=== PATIENT | female | born 1945 | race Caucasian/White ===

== ENCOUNTER → 2020-05-19 09:59 | Outpatient (CLI) | payer MEDICARE, SELFPAY ==
--- NOTE | 2020-05-19 10:04 | DI.RAD.S_ITS ---
PROCEDURE: XR KUB INDICATIONS: kidney stones TECHNIQUE: One view of the abdomen acquired. COMPARISON: None. FINDINGS: Surgical changes and devices: None. Bowel: Bowel gas pattern is normal. Soft tissues: No suspicious abdominal calcifications on the left but on the right there is a 8 x 9 mm calcification overlying the expected position of the upper 3rd collecting system of the right kidney.. Visualized solid organ contours appear normal in size. Bones: No suspicious bony lesions. IMPRESSION: 8 x 9 mm apparent calcification over the upper 3rd of the right kidney area. No CT KUB is available for review. Dictated by: Jorje Azar M.D. on 05/19/2020 at 10:40 Approved by: Jorje Azar M.D. on 05/19/2020 at 10:43
== END ==
PROVIDERS: Referring Provider Specialist; Visit Provider Specialist
DX: N20.0 Calculus of kidney (principal); N20.1 Calculus of ureter; R39.9 Unspecified symptoms and signs involving the genitourinary system
CPT/HCPCS: 74018; 99214

== ENCOUNTER 2020-06-06 06:12 | Day surgery (SDC) | payer MEDICARE, SELFPAY ==
[2020-06-06] VITALS (8 sets, daily range): BP systolic 112–141; BP diastolic 44–73; PULSE 64–93; RESP 12–18; TEMP 36.4–36.8; O2SAT 93–100; BMI 37.0
--- NOTE | 2020-06-06 | DI.RAD.S_ITS ---
PROCEDURE: XR KUB INDICATIONS: Ureteral calculus TECHNIQUE: One view of the abdomen acquired. COMPARISON: [facility], CR, XR KUB, 05/19/2020, 10:13. FINDINGS: Surgical changes and devices: Partially visualized pacer. Bowel: Bowel gas pattern is normal. Mild stool Soft tissues: No suspicious abdominal calcifications. Visualized solid organ contours appear normal in size. Bones: No suspicious bony lesions. Spondylosis and bilateral hip joint degeneration. IMPRESSION: Mild stool. No specific evidence of bowel obstruction seen at this time although if the patient's symptoms do not improve, continued surveillance with abdominal series radiographs could be performed. Dictated by: Wai Madison M.D. on 06/06/2020 at 9:33 Approved by: Wai Madison M.D. on 06/06/2020 at 9:34
--- NOTE | 2020-06-06 07:27 | PM.PREOP ---
Pre-operative Note Interval Note History & Physical reviewed/Exam performed by Physician: Yes Changes to H&P: No
[2020-06-06] MEDS: LACTATED RINGERS 1,000 ML 42 ML IV (07:41)
[2020-06-06] MEDS: CEFAZOLIN 2 GM/100 ML FROZ.PIGGY IV (07:46)
--- NOTE | 2020-06-06 08:30 | SUR.OPER ---
Lithotomy on padded OR bed, head on pillow, arms secured on padded arm boards at <90 degrees abduction. Legs secured in padded yellow fins stirrups.
[2020-06-06] MEDS: BELLADONNA/OPIUM SUPPOSITORIES 1 EACH PR (09:00)
--- NOTE | 2020-06-06 09:13 | SUR.OPER ---
LASER SETTINGS: 0.3 J, 40HZ, 4.54 KJ, 6:58
--- NOTE | 2020-06-06 09:19 | P.OP_ITS ---
Operative Date/Time/Diagnoses Date of procedure: 06/06/20 Time of procedure: 09:19 Pre-op diagnosis: 1. 10 x 7 mm right distal ureteral calculus 2. Multiple right nephrolithiasis Post-op diagnosis: other (Right ureterocele) Procedure & Clinicians Procedure: 1. Right ureteroscopic laser lithotripsy Same procedure as scheduled: No (Stent not placed.) Indications: 1. 10 x 7 mm right distal ureteral calculus. 2. Multiple right renal calculi. 3. History of right renal colic. Surgeon: Ashwini Carpio Click Yes if Unassisted: Yes Anesthesia Type: General Operative Notes Findings: Urethra normal Bladder with normal urothelium throughout with exception of region surrounding the right ureteral orifice and distal intramural ureter. (preop early patient reported she passed a tiny irregular stone in the interval since last seen). A right ureterocele was identified with a stenotic os Right ureter demonstrated presence of 2 calculi adjacent to 1 another. The more proximal ureter was without abnormality. Closure Type: not applicable Specimen(s): none sent Estimated Blood Loss (mL): 0 Blood products transfused: none Tourniquet time (min): 0 Procedure in detail: Patient was positioned supine and was administered general anesthesia. She was then repositioned in the semi lithotomy and the lower abdomen, genitalia, and groin were then prepped and draped in sterile fashion. The 22 Mexican panendoscope was then passed lower urinary tract with the findings as described above. A hybrid 0.35 ureteral guidewire was then advanced through a 5 Mexican pollock catheter to optimize control of the floppy tip of the Glidewire. The os was not immediately apparent. With gentle and careful probing the os was identified and the wire was then advanced proximally under direct and fluoroscopic guidance successfully. The Sultan catheter was then backloaded off the wire. A 15 Mexican balloon dilating catheter was then advanced over the guidewire and positioned across the right ureterovesical junction. The balloon was then inflated to 18 atmospheres and held for 5 minutes. The balloon was then deflated and the balloon dilating catheter was backloaded off the wire. The semi rigid ureteral scope was then advanced in lower urinary tract and then into the distal right ureter with the findings as described above. A 365 micron laser fiber was selected and all operating room personnel and patient were fitted with laser safety eyewear. Laser lithotripsy was then commenced and continued until both stones were fragmented down to diameter about half of that of the 365 micron laser fiber. Some of the fragments were irriga katie agitated from the distal ureter. The ureteral scope was then removed and the panendoscope was placed back in the bladder and the bladder contents drained a final time. The patient was then repositioned supine, was awakened, and transferred to a reau claire for transport to PACU. Complications: none Post-operative Condition: stable Disposition: PACU Plan for aftercare: Discharge home
[2020-06-06] MEDS: FUROSEMIDE 20 MG/2 ML VIAL IV (09:23)
--- NOTE | 2020-06-06 09:58 | SUR.PHASEII ---
Report given to Germaine WEINSTEIN. Pt states pain is a 2-3 and is tolerating it and does not want pain medication. Pt is up and going to the bathroom. pt voided once and RN strained urine and nothing came out. Will strain urine when pt goes again. No complaints pt tolerated fluids well.
[2020-06-19 10:07] LABS: Size To small to measure.
== END 2020-06-06 11:10 | disposition home or self-care (01) ==
PROVIDERS: PCP Family Medicine; Referring Provider Specialist; Visit Provider Specialist
PROC: (CPT 52353; principal; 2020-06-06 07:45)
DX: N20.1 Calculus of ureter (principal); N28.89 Other specified disorders of kidney and ureter; N20.0 Calculus of kidney; I10 Essential (primary) hypertension; Z95.0 Presence of cardiac pacemaker; Z79.01 Long term (current) use of anticoagulants
CPT/HCPCS: 52353; 74018; 76000; 82365; 85610; J0690; J1100; J1940; J2405; J2704; J3010

== ENCOUNTER → 2022-12-27 09:55 | Outpatient (CLI) | payer MEDICARE, SELFPAY ==
--- NOTE | 2022-12-27 | DI.US.S_ITS ---
ULTRASOUND GUIDED BIOPSY LEFT BREAST USING VACUUM DEVICE WITH MARKING DEVICE INSERTED: 12/27/2022 CLINICAL: Left breast mass. PATIENT CONSENT: Risks (minor bleeding, infection, vasovagal reaction and repeat procedure), benefits and alternatives were explained to the patient and written informed consent was obtained. Correlation is made to exams dated: 12/08/2022 ultrasound, 11/30/2022 mammogram, 11/02/2022 mammogram - out side, 02/13/2013 mammogram, and 01/19/2012 mammogram - [facility]. An ultrasound guided biopsy using real-time ultrasound was performed for the circumscribed irregular shaped cystic mass located in the left breast at 9 o'clock posterior depth. This was described on the previous mammography and ultrasound reports. The skin was prepped in the usual manner. The abnormality was approached from the lateral aspect. A 13 gauge biopsy needle was placed adjacent to the abnormality under ultrasound guidance. Once the needle was documented to be in the correct location, four specimens were obtained using the Mammotome biopsy system. A clip was inserted into the biopsy cavity. Post procedure imaging demonstrates the location device at the targeted area. The specimens were sent to the laboratory for pathological analysis. IMPRESSION: ULTRASOUND GUIDED BIOPSY BENIGN Ultrasound guided biopsy of the cystic mass in the left breast at 9 o'clock posterior depth was successful. Pathology indicates benign apocrine metaplasia (AM), ductal ectasia (DE), and periductal fibrosis. Pathology results are concordant with imaging findings. Return to annual mammogram screening schedule is recommended. This exam was interpreted at Station ID: [id number]. Fabian Thayer M.D. acr/:01/02/2023 18:32:54
--- NOTE | 2022-12-27 | DI.MG.S_ITS ---
UNILATERAL LEFT DIGITAL DIAGNOSTIC MAMMOGRAM 3D/2D POST-EXCISIONAL BIOPSY: 12/27/2022 CLINICAL: Post clip. Comparison is made to exams dated: 11/30/2022 mammogram, 11/02/2022 mammogram - out side, and 02/13/2013 mammogram - [facility]. There are scattered areas of fibroglandular density in the left breast (category b / 25%-50% glandular tissue). There is a mass in the left breast seen on the craniocaudal view only. There also is a marker clip in the appropriate position in the left breast at 9 o'clock posterior depth. This marker clip placement is at the biopsy site. IMPRESSION: POST PROCEDURE MAMMOGRAM FOR MARKER PLACEMENT The mass in the left breast seen on the craniocaudal view only needs additional evaluation. There was a successful marker clip placement in the left breast at 9 o'clock posterior depth. Based on the Tyrer Cuzick model (a risk assessment model) the patient's lifetime risk is 1.9% and her 10 year risk is 0.0%. According to the ACR, ACS, and NCCN guidelines, an annual breast MRI exam along with mammogram is recommended if the patient's lifetime risk is 20% or greater. This exam was interpreted at Station ID: [id number]. NOTE: For mammograms, a report in lay terms will be sent to the patient. Approximately 15% of breast malignancies will not be visualized mammographically. In the management of a palpable breast mass, a negative mammogram must not discourage biopsy of a clinically suspicious lesion. Electronically Signed By: Fabian Thayer M.D. acr/:12/27/2022 11:35:45 ACR BI-RADS Category Post-procedure mammogram for marker placement
--- NOTE | 2022-12-27 | PATH_ITS ---
[facility] Accession Number: [id number] No. of containers..01 Tissue . 01 Material submitted: . breast - LEFT BREAST 9:00 4CMDN MASS . 01 Diagnosis: Left Breast 9 o'clock, 4 cm DN Mass, Biopsies: Benign breast parenchyma with cystic apocrine metaplasia, duct ectasia, and periductal fibrosis. Rare calcifications associated with benign ducts also present. Negative for in situ and invasive malignancy. . . CAMERON 12/30/2022 1617 Local . 01 Comment: Multiple deeper levels have been examined without evidence of an in situ or invasive carcinoma. . As part of ongoing microbiology quality control technician, this case is also reviewed by Dr. Maria Eugenia Russell who agrees with the interpretation. . 01 Electronically signed: . Kim Valladares MD, Pathologist NPI- [id number] . 01 Gross description: . The specimen is received in formalin labeled with the patient's name, , and BX breast, consists of multiple yellow-stanton soft tissue fragments aggregating to 1.4 x 0.7 x 0.2 cm. The specimen is inked orange, filtered, and submitted entirely in cassette A1. . The specimen was removed on 12/27/2022 at 1059. Time in formalin not provided. Cold ischemic time cannot be calculated. Total fixation time is approximately 31.5 hours. ([id number]) /MRV 12/28/2022 1313 Local . 01 Pathologist provided ICD-10: R92.8, N63.0 . 01 CPT . 771429 Performed at: 01 [facility] [address] [place] [address] [address], [place], [place] [id number] MD Cole Puri MD Phone: [phone]
== END ==
PROVIDERS: PCP Family Medicine; Referring Provider Family Medicine; Visit Provider Family Medicine
DX: N63.25 Unspecified lump in the left breast, overlapping quadrants (principal)
CPT/HCPCS: 19083; 77065

== ENCOUNTER → 2025-01-01 10:18 | Outpatient (CLI) | payer MEDICARE, SELFPAY ==
--- NOTE | 2025-01-01 10:20 | DI.MG.S_ITS ---
MM diagnostic mammo unilat RT, US breast RT limited: 01/01/2025 BI-RADS: 3 CLINICAL: 79-year old female for right diagnostic mammogram and right diagnostic breast ultrasound. The patient presents for a follow-up. Tyrer-Cuzick lifetime risk of 2.4%. No personal or first-degree family history of breast cancer. PRIOR EXAMS 12/04/24, 06/06/2024, 11/22/2023, 11/08/2023, 12/27/2022, 11/30/2022, 11/02/2022. MAMMOGRAPHY TECHNIQUE: 2D and 3D (tomosynthesis) digital mammographic views obtained, with additional images as needed for full coverage. Current study was also evaluated with a Computer Aided Detection (CAD) system. ULTRASOUND TECHNIQUE: Real-time ellis scale and color doppler imaging of the area of clinical interest was performed with image documentation. TARGETED Right Breast Ultrasound: Real-time ultrasound exam was performed focused to area of clinical and/or imaging concern. DENSITY Right: B. There are scattered areas of fibroglandular density. MAMMOGRAPHY FINDINGS Right (finding-1): Upper at 12:00, Middle depth, measuring 0.5cm: Correlating with prior imaging concern there is a circumscribed, oval, low-density mass present that is unchanged in size and appearance. ULTRASOUND FINDINGS Right (finding-1): Upper at 12:00, 4 cm from nipple, measuring 0.6 x 0.2 x 0.3 cm - previously measuring (12/05/2023) 0.5 x 0.2 x 0.3 cm: Correlating with prior imaging concern there is an oval, circumscribed, hypoechoic cyst vs solid mass. The lesion is unchanged in size and appearance. Doppler shows no vascularity. IMPRESSION: Right (CvS): Upper at 12:00, 4 cm from nipple, measuring 0.6 x 0.2 x 0.3 cm - previously measuring (12/05/2023) 0.5 x 0.2 x 0.3 cm * Probably Benign. RECOMMENDATIONS Right: Upper at 12:00, 4 cm from nipple * Followup with diagnostic mammography and diagnostic ultrasound in one year to demonstrate 2 year stability. When the patient returns for short-term unilateral followup, a mammogram for the contralateral breast will also be due. COMMENTS: Findings and recommendations were conveyed to the patient during today's evaluation. OVERALL ASSESSMENT CATEGORY BI-RADS-3: Probably Benign. ELECTRONICALLY SIGNED: Diana Bustamante M.D. on 01/01/2025 at 11:11:39 AM PT Interpreting Station ID: [id number]
== END ==
PROVIDERS: PCP Family Medicine; Referring Provider Family Medicine; Visit Provider Student in an Organized Health Care Education/Training Program
DX: R92.8 Other abnormal and inconclusive findings on diagnostic imaging of breast (principal); R92.2 Inconclusive mammogram; N63.15 Unspecified lump in the right breast, overlapping quadrants; R92.321 Mammographic fibroglandular density, right breast
CPT/HCPCS: 76642; 77065; G0279